=== PATIENT | male | born 1985 | race Caucasian/White ===

== ENCOUNTER 2022-06-21 02:04 | Emergency (ER) | payer OTHER ==
[~2022-06-21] VITALS: Ht 188 cm; Wt 75.0 kg
[2022-06-21] MEDS ORDERED: LIDOCAINE HCL VIS2 % TOP (02:38)
[2022-06-21] MEDS ORDERED: ANUCORT-HC25 MG RE (02:38)
[2022-06-21 02:48] VITALS: BP 138/91
== END 2022-06-21 02:53 | disposition home or self-care (01) | DRG 395 ==
LOC: ED 02:04
DX: K64.9 Unspecified hemorrhoids (principal)

== ENCOUNTER 2022-07-17 10:03 | Day surgery (SDC) | payer OTHER ==
[~2022-07-17] VITALS: Ht 188 cm; Wt 79.4 kg
[~2022-07-17 10:03] MED LIST: ANUCORT-HC25 MG RE; LIDOCAINE HCL VIS2 % TOP; MULTIVITAMI1 PO
[2022-07-17] MEDS ORDERED: PERCOCET 5/325M1 TAB PO (12:14)
[2022-07-17 13:06] VITALS: BP 118/81
== END 2022-07-17 13:20 | disposition home or self-care (01) | DRG 349 ==
LOC: ORM 10:03
PROVIDERS: ATTEND Surgery
PROC: 06BY3ZC Excision of Hemorrhoidal Plexus, Percutaneous Approach (ICD-10-PCS; principal; 2022-07-17)
DX: K64.2 Third degree hemorrhoids (principal); F17.210 Nicotine dependence, cigarettes, uncomplicated; Z86.010 Personal history of colon polyps
CPT/HCPCS: C9290; J0131; J0690